=== PATIENT | male | born 2000 | race Caucasian/White ===

== ENCOUNTER 2023-04-20 07:32 | Emergency (ER) | payer OTHER, MEDICAID, SELFPAY ==
[2023-04-20 07:51] VITALS: BP 117/76; PULSE 70; RESP 17; TEMP 36.6; O2SAT 99; BMI 19.9
--- NOTE | 2023-04-20 07:54 | ED.GENADULT ---
HPI - General Adult General Chief complaint: Extremity Problem,Nontraumatic Stated complaint: Muscle pain bilateral shoulders Time Seen by Provider: 04/20/23 07:44 Source: patient Mode of arrival: Ambulatory Limitations: no limitations History of Present Illness HPI narrative: Otherwise healthy 22-year-old male who a couple days ago started to have episodes of nausea and vomiting. Since that time his nausea has improved however he is now having body aches specifically in his shoulders and in his legs. He also has a sore throat. He had a low-grade fever early on in the course but nothing recently. His last dose of Tylenol and ibuprofen as yesterday. No skin rashes. Related Data Home Medications Medication Instructions Recorded Confirmed No Known Home Medications 04/20/23 04/20/23 Allergies Allergy/AdvReac Type Severity Reaction Status Date / Time No Known Drug Allergies Allergy Verified 04/20/23 07:55 Review of Systems Constitutional Constitutional: Reports system reviewed and no additional complaints, except as documented ENT Ears, Nose, Mouth, and Throat: Reports system reviewed and no additional complaints, except as documented Respiratory Respiratory: Reports system reviewed and no additional complaints, except as documented Gastrointestinal Gastrointestinal: Reports system reviewed and no additional complaints, except as documented Integumentary/Breasts Skin/Breast: Reports system reviewed and no additional complaints, except as documented Neurologic Neurologic: Reports system reviewed and no additional complaints, except as documented Hematologic/Lymphatic On Anticoagulants: No Patient History Social History Smoking Status: Unknown if ever smoked Exam Initial Vital Signs Initial Vital Signs: Vital Signs Temperature 98 F 04/20/23 07:51 Pulse Rate 70 04/20/23 07:51 Respiratory Rate 17 04/20/23 07:51 Blood Pressure 117/76 04/20/23 07:51 Pulse Oximetry 99 04/20/23 07:51 Oxygen Delivery Method Room Air 04/20/23 07:51 Const General: cooperative, comfortable and No ill appearing HENMT Head: normal to inspection and normocephalic Ears: TM's normal bilaterally Mouth: oral mucosae normal and moist mucous membranes Resp Effort & Inspection: normal respiratory effort Auscultation: clear to auscultation bilaterally Cardio Rate: regular rate Back/Spine/Pelvis Other: Tenderness to palpation upper back. Skin General: no rashes or lesions noted Extrem General: normal to inspection Course Orders Ordered: ED Orders 04/20/23 08:05 Covid-19 + FLU A/B + RSV - PCR Stat Discontinued Medications Ibuprofen (Ibuprofen 400 Mg Tablet) 800 mg PO NOW ONE Stop: 04/20/23 07:54 Last Admin: 04/20/23 07:59 Dose: 800 mg Documented By: SAMIRA Vital Signs Vital signs: Vital Signs - 8 hr 04/20/23 07:51 Temperature 98 F Pulse Rate 70 Respiratory Rate 17 Blood Pressure 117/76 Pulse Oximetry 99 Oxygen Delivery Method Room Air Medical Decision Making Lab Data Lab results reviewed: Yes I reviewed the patient's lab results. Labs: Lab Results 04/20/23 Range/Units 08:05 SARS-CoV-2 (PCR) Negative (Negative) Influenza A (RT-PCR) Flu a negative (NEGATIVE) Influenza B (RT-PCR) Flu b negative (NEGATIVE) RSV (PCR) Negative (Negative) MDM Narrative Medical decision making narrative: Patient's COVID and flu test are negative although his symptoms are very consistent with 1 of these types of illnesses. His throat exam is unremarkable. He is afebrile here. He states that the ibuprofen did take the edge off of his body aches. There was no indication for antibiotics. Low suspicion for pneumonia. Will discharge patient home with symptom treatment. He was given return precautions. He expressed understanding and agreement. Discharge Plan Departure Patient Disposition: Home Clinical Impression: Muscle ache, Sore throat Activity Restrictions/Additional Instructions: I would expect that your symptoms are going to improve over the next couple days. Until then you can take Tylenol and ibuprofen for any fevers or body aches. Show that your increasing your fluid intake. Return to the emergency department for new symptoms. Prescriptions: No Action No Known Home Medications Stand Alone Forms: Patient Portal/API
[2023-04-20] MEDS: IBUPROFEN 400 MG TABLET 800 MG PO (07:59)
[2023-04-20 08:54] LABS: Influenza A - CEPHEID Flu A NEGATIVE (NEGATIVE); Influenza B - CEPHEID Flu B NEGATIVE (NEGATIVE); Respiratory Syncytial Virus Negative (Negative)
[2023-04-20 09:12] LABS: COVID-19 CEPHEID 4-PLEX PCR Negative (Negative)
[2023-04-20 09:25] VITALS: BP 122/76; PULSE 71; RESP 16; O2SAT 99
== END 2023-04-20 09:47 | disposition home or self-care (01) ==
PROVIDERS: Emergency Provider Emergency Medicine
DX: J02.9 Acute pharyngitis, unspecified (principal); M79.10 Myalgia, unspecified site; Z20.822 Contact with and (suspected) exposure to COVID-19
CPT/HCPCS: 0241U; 99282; 99283